=== PATIENT | male | born 2005 | race Caucasian/White ===

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

== ENCOUNTER 2023-02-14 14:17 | Emergency (ER) | payer MEDICAID ==
[~2023-02-14] VITALS: Ht 170.2 cm; Wt 66.8 kg
[~2023-02-14 14:17] MED LIST: AZITTAB PO; CYCL-839 PO; IBUP600T28 PO; PROM1SOL4 PO
[2023-02-14 15:51] VITALS: BP 129/82
[2023-02-14] MEDS ORDERED: IBUP800T27 PO (15:59)
[2023-02-14] MEDS ORDERED: METH500T22 PO (15:59)
== END 2023-02-14 16:03 | disposition home or self-care (01) ==
LOC: ER 14:17
DX: S39.012A Strain of muscle, fascia and tendon of lower back, initial encounter (principal); Z79.1 Long term (current) use of non-steroidal anti-inflammatories (NSAID); Z79.2 Long term (current) use of antibiotics; Z79.899 Other long term (current) drug therapy; X58.XXXA Exposure to other specified factors, initial encounter; Y93.89 Activity, other specified; Y92.89 Other specified places as the place of occurrence of the external cause; Y99.8 Other external cause status
CPT/HCPCS: 72100